=== PATIENT | female | born 1945 | race Caucasian/White ===

== ENCOUNTER → 2018-10-29 | Outpatient (CLI) | payer OTHER ==
[~2018-10-29] MED LIST: ACETAMINOPHEN-1 EAC1 PO; ASPIR 8181 M1 PO; ATORVASTATIN CA40 MG PO; GLIPIZIDE 10 MG10 MG PO; LASIX 20 MG TAB20 MG PO; LIDOCAINE1 EACH TRANSDERM; LOSARTAN-HCTZ1 EAC3 PO; MULTIVITAMINS PO; NAPROXEN375 MG PO
== END ==
LOC: HYPER 10-28 11:01
DX: E11.622 Type 2 diabetes mellitus with other skin ulcer (principal); L89.321 Pressure ulcer of left buttock, stage 1; L89.311 Pressure ulcer of right buttock, stage 1; L98.411 Non-pressure chronic ulcer of buttock limited to breakdown of skin; E11.22 Type 2 diabetes mellitus with diabetic chronic kidney disease; I13.0 Hypertensive heart and chronic kidney disease with heart failure and stage 1 through stage 4 chronic kidney disease, or unspecified chronic kidney disease; N18.2 Chronic kidney disease, stage 2 (mild); I50.9 Heart failure, unspecified; G83.10 Monoplegia of lower limb affecting unspecified side; J45.909 Unspecified asthma, uncomplicated; M54.16 Radiculopathy, lumbar region; Z90.49 Acquired absence of other specified parts of digestive tract; Z79.84 Long term (current) use of oral hypoglycemic drugs

== ENCOUNTER → 2018-11-26 | Outpatient (CLI) | payer OTHER | LOC: HYPER 07:47 | DX: E11.622 Type 2 diabetes mellitus with other skin ulcer (principal); L89.321 Pressure ulcer of left buttock, stage 1; L89.311 Pressure ulcer of right buttock, stage 1; E11.22 Type 2 diabetes mellitus with diabetic chronic kidney disease; I13.0 Hypertensive heart and chronic kidney disease with heart failure and stage 1 through stage 4 chronic kidney disease, or unspecified chronic kidney disease; N18.2 Chronic kidney disease, stage 2 (mild); I50.9 Heart failure, unspecified; G83.10 Monoplegia of lower limb affecting unspecified side; J45.909 Unspecified asthma, uncomplicated; M54.16 Radiculopathy, lumbar region; Z79.84 Long term (current) use of oral hypoglycemic drugs ==

== ENCOUNTER → 2019-01-22 | Outpatient (CLI) | payer OTHER | LOC: HYPER 01-21 07:20 | DX: E11.622 Type 2 diabetes mellitus with other skin ulcer (principal); L89.321 Pressure ulcer of left buttock, stage 1; L89.311 Pressure ulcer of right buttock, stage 1; L98.411 Non-pressure chronic ulcer of buttock limited to breakdown of skin; E11.22 Type 2 diabetes mellitus with diabetic chronic kidney disease; I13.0 Hypertensive heart and chronic kidney disease with heart failure and stage 1 through stage 4 chronic kidney disease, or unspecified chronic kidney disease; N18.2 Chronic kidney disease, stage 2 (mild); I50.9 Heart failure, unspecified; G83.10 Monoplegia of lower limb affecting unspecified side; J45.909 Unspecified asthma, uncomplicated; M54.16 Radiculopathy, lumbar region; Z79.84 Long term (current) use of oral hypoglycemic drugs ==

== ENCOUNTER → 2019-02-03 | Outpatient (CLI) | payer OTHER | LOC: HYPER 06:47 | DX: T81.89XD Other complications of procedures, not elsewhere classified, subsequent encounter (principal); E11.622 Type 2 diabetes mellitus with other skin ulcer; L89.311 Pressure ulcer of right buttock, stage 1; L98.411 Non-pressure chronic ulcer of buttock limited to breakdown of skin; E11.22 Type 2 diabetes mellitus with diabetic chronic kidney disease; I13.0 Hypertensive heart and chronic kidney disease with heart failure and stage 1 through stage 4 chronic kidney disease, or unspecified chronic kidney disease; N18.2 Chronic kidney disease, stage 2 (mild); I50.9 Heart failure, unspecified; G83.10 Monoplegia of lower limb affecting unspecified side; J45.909 Unspecified asthma, uncomplicated; M54.16 Radiculopathy, lumbar region; Z79.84 Long term (current) use of oral hypoglycemic drugs; Y83.8 Other surgical procedures as the cause of abnormal reaction of the patient, or of later complication, without mention of misadventure at the time of the procedure ==